=== PATIENT | female | born 1935 | race African-American/Black ===

== ENCOUNTER 2019-03-22 19:18 | Emergency (ER) | payer OTHER, MEDICARE ==
[~2019-03-22] VITALS: Ht 167.6 cm; Wt 100.0 kg
[2019-03-22 21:36] LABS: BASOPHILS % 0.3 % (0.0-2.0); EOSINOPHILS % 0.4 % (0.0-5.0); HEMATOCRIT. 39.6 % (36.0-48.0); LYMPHOCYTES % 12.4 % (20.0-50.0); MEAN CORPUSCULAR HEMOGLOBIN 31.7 pg (28.0-32.0); MEAN CORPUSCULAR VOLUME 96.8 fL (81.0-99.0); MEAN PLATELET VOLUME 7.5 fl (7.4-10.4); MONOCYTES % 9.6 % (2.0-8.0); NEUTROPHILS % 77.3 % (40.0-76.0); PLATELET 505 x1000/uL (130-400); RED BLOOD CELL COUNT 4.09 mill/uL (4.2-5.4); RED CELL DISTRIBUTION WIDTH 13.9 % (11.6-14.6)
[2019-03-22 21:43] LABS: CHLORIDE 103 mEq/L (98-107)
[2019-03-22 21:59] LABS: CLARITY URINE TURBID (CLEAR); COLOR URINE DARK YELLOW (YELLOW); KETONES URINE NEGATIVE (NEGATIVE); LEUKOCYTE ESTERASE URINE 2+ (NEGATIVE); NITRITE URINE POSITIVE (NEGATIVE); OCCULT BLOOD URINE 2+ (NEGATIVE); PROTEIN URINE 1+ (NEGATIVE); SPECIFIC GRAVITY URINE 1.021 (1.005-1.030)
[2019-03-22] MEDS ORDERED: FELO5TAB PO (22:46)
[2019-03-22] MEDS ORDERED: ATOR10TA69 MT (22:46)
[2019-03-22] MEDS ORDERED: POTA8TAB4 MT (22:46)
[2019-03-22] MEDS ORDERED: CEFTRIAXONE 1 G PREMIX 50 ML IV STA (23:34)
[2019-03-22] MEDS ORDERED: SODIUM CHLORIDE 0.9% 1,000 ML IV ONE (23:45)
[2019-03-23 00:33] VITALS: BP 120/61
== END 2019-03-23 00:54 | disposition short-term general hospital (02) ==
LOC: ER 19:18
DX: N39.0 Urinary tract infection, site not specified (principal); R31.0 Gross hematuria; N28.9 Disorder of kidney and ureter, unspecified; E87.1 Hypo-osmolality and hyponatremia; R79.89 Other specified abnormal findings of blood chemistry; E88.09 Other disorders of plasma-protein metabolism, not elsewhere classified
CPT/HCPCS: 36415; 71045; 80053; 81003; 83880; 84484; 85025; 93005; 96374; 99285; J0696; J7030